=== PATIENT | female | born 1950 | race Caucasian/White ===

== ENCOUNTER 2024-01-31 20:02 | Emergency (ER) | payer SELFPAY ==
[~2024-01-31] VITALS: Ht 177.8 cm; Wt 109.1 kg
[2024-01-31 20:19] VITALS: TEMP 98.1
[2024-01-31] MEDS ORDERED: NS 500 ML IV ONE (21:15)
[2024-01-31] MEDS ORDERED: Ketorolac 15 MG/ML VIAL IV ONE (22:00)
[2024-01-31] MEDS ORDERED: Acetaminophen 500 MG TAB PO ONE (22:00)
[2024-01-31] MEDS ORDERED: Home HYDROcodone/Acetaminophen 5/325 MG #4 TABS/PACK PO ONE (23:15)
[2024-01-31 23:35] VITALS: BP 130/71; PULSE 74
== END 2024-01-31 23:35 | disposition home or self-care (01) ==
LOC: COL.ER 20:02
DX: S42.202A Unspecified fracture of upper end of left humerus, initial encounter for closed fracture (principal); Z91.040 Latex allergy status; W06.XXXA Fall from bed, initial encounter; X50.1XXA Overexertion from prolonged static or awkward postures, initial encounter; Y92.009 Unspecified place in unspecified non-institutional (private) residence as the place of occurrence of the external cause
CPT/HCPCS: J1885; J2704; J7040